=== PATIENT | male | born 1950 ===

== ENCOUNTER 2018-09-02 09:03 | Day surgery (SDC) ==
[2018-09-02] MEDS ORDERED: PRED FORTE 1% OP PRN (10:17)
[2018-09-02] MEDS ORDERED: OCUFLOX 0.3% OPTH SOL OP PRN (10:17)
[2018-09-02] MEDS: OCUFEN 0.03% OPTH SOL OP PRN ×3 (10:30→11:00)
[2018-09-02] MEDS: TETRACAINE 0.5% UNIT-DOSE OP PRN ×5 (10:30→11:50)
[2018-09-02] MEDS: AK-DILATE 10% OPTH SOL OP PRN ×3 (10:30→10:40)
[2018-09-02] MEDS: CYCLOGYL 2% OPTH OP PRN ×3 (10:30→10:40)
[2018-09-02] MEDS ORDERED: BSS WITH EPINEPHRINE OP ONE (10:40)
[2018-09-02] MEDS ORDERED: LIDOCAINE 1% 20 ML MDV ID STA (10:40)
[2018-09-02] MEDS ORDERED: LIDOCAINE HCL 1% SDV INJ PRN (10:40)
[2018-09-02] MEDS ORDERED: DIAMOX PO STA ×2 (10:40→13:38)
[2018-09-02] MEDS ORDERED: ALBUTEROL 0.083% NEB NEB STA (10:40)
[2018-09-02] MEDS ORDERED: BETADINE OPTH PREP OP ONE (10:40)
[2018-09-02 10:51] VITALS: TEMP 97.9
[2018-09-02] MEDS ORDERED: VERSED ONE (11:45)
[2018-09-02] MEDS ORDERED: MIOSTAT INTRAOCULA ONE ×2 (11:56)
[2018-09-02] MEDS ORDERED: DIAMOX ONE (12:59)
[2018-09-02 13:12] VITALS: BP 168/97
--- NOTE | 2018-09-02 13:54 | OP ---
PREOPERATIVE DIAGNOSIS: CATARACT EXTRACTION WITH IOL LEFT EYE. POSTOPERATIVE DIAGNOSIS: SAME. OPERATION: PHACOEMULSIFICATION ASPIRATION OF CATARACT LEFT EYE. PLACEMENT OF POSTERIOR CHAMBER LENS. PHACO TIME 36.6 SECONDS AT 4.0% POWER. LENS MODEL TECNIS [id number]. DIOPTER +23.0D. TECHNIQUE: CLEAR CORNEA. ANESTHESIA: TOPICAL ANESTHESIA W/ANESTHESIA MONITORING. OPERATIVE REPORT: Topical anesthesia consisting of Tetracaine was applied to the cornea and Xylocaine Methyl Paraben free of MFP was injected intracamerally into the anterior chamber. The patient was then brought into the operating room , prepped and draped in the usual ophthalmic manner. A lid speculum was placed and the operating microscope was used. A paracentesis was made at the 3 o' clock position. A clear corneal incision was made just out to the limbus. The anterior chamber was entered just inside the clear cornea. Viscoelastic was injected into the anterior chamber. A capsulotomy was performed with a bent # 27 gauge needle. Phacoemulsification was then performed in the posterior chamber. After completion of the phacoemulsification, residual cortical material was aspirated with the irrigation-aspiration system. The posterior capsule was polished. Viscoelastic was injected into the anterior and posterior chambers to inflate the capsular bag. Lens were placed via an Unfolder system and stabilized in the bag. Viscoelastic was removed from the anterior chamber. The wound was checked for any leakage. The four sponges were removed from the fornix. Topical antibiotic steroid and nonsteroidal drops were also applied to the cornea. A Ortega shield was applied. The patient left the operating room in good condition without any complications. INTRAOPERATIVE MEDICATIONS: Xylocaine Methyl Paraben Free MPF ADDENDUM: RADIAL TEAR ANTERIOR CAPSULE, POSTERIOR CAPSULE INTACT. USED MIOSTAT TO CONSTRUCT PUPIL AND STABLE LENS INTACT. MTDD
== END 2018-09-02 13:00 | disposition home or self-care (01) ==
LOC: SURG 09:03
PROVIDERS: ATTEND Ophthalmology
DX: H25.13 Age-related nuclear cataract, bilateral (principal); H25.013 Cortical age-related cataract, bilateral; H40.013 Open angle with borderline findings, low risk, bilateral
CPT/HCPCS: 94640